=== PATIENT | male | born 1980 | race American Indian/Alaskan Native ===

== ENCOUNTER 2019-02-12 19:50 | Observation (INO) | payer BC, OTHER ==
[2019-02-12] MEDS ORDERED: ASPIRIN PO ONE (20:46)
--- NOTE | 2019-02-12 21:17 | XRay Report ---
PROCEDURE: XR CHEST 1V AP TECHNIQUE: Chest radiograph single view. HISTORY: Chest Pain COMPARISONS: None . FINDINGS: Heart: Normal. Mediastinum/Vessels: Normal. Lungs/Pleural space: There is elevation of the right hemidiaphragm. No acute pulmonary abnormality id entified. Bony thorax: No acute osseous abnormality. Life support devices: None. IMPRESSION: Markedly elevated right hemidiaphragm No acute findings in the chest This document is electronically signed by Teofilo Ponce MD., February 12 2019 09:15:28 PM ET
[2019-02-12 21:47] LABS: Basophils # (Auto) 0.1 K/mm3 (0.0-0.1); Basophils % (Auto) 0.4 % (0.0-1.8); Eosinophils # (Auto) 0.1 K/mm3 (0.0-0.4); Eosinophils % (Auto) 0.4 % (0.0-4.3); Hematocrit 42.2 % (35.5-45.6); Hemoglobin 13.6 gm/dl (11.8-15.2); Lymphocytes % (Auto) 6.2 % (13.4-35.0); Mean Corpuscular HGB Conc 32 % (32-34); Mean Corpuscular Volume 77 fl (84-94); Monocytes # (Auto) 1.3 K/mm3 (0.0-0.8); Monocytes % (Auto) 7.7 % (0.0-7.3); Platelet Count 401 K/mm3 (140-440); Red Blood Count 5.47 M/mm3 (3.65-5.03); Red Cell Distribution Width 15.1 % (13.2-15.2)
--- NOTE | 2019-02-12 21:51 | Emergency Department Report ---
ED Chest Pain HPI - General Chief Complaint: Chest Pain Stated Complaint: CHEST PAIN Time Seen by Provider: 02/12/19 21:45 Source: patient Mode of arrival: Ambulatory Limitations: No Limitations - History of Present Illness Initial Comments: Patient is a 38-year-old male presents emergency with right-sided chest pain radiating to his right arm that started 1 hour prior to arrival. Patient states the pain is worsening. Patient states the pain is intermittent. Patient states it starts in his right sternum and radiates down his entire right arm. Patient states the pain is worse with deep breath and exertion and better with rest. She denies fever chills. Patient denies cough. Patient states he has shortness of breath with exertion MD Complaint: chest pain -: Sudden Onset: during rest Pain Location: substernal, right chest Pain Radiation: RUE Severity: severe Severity scale (0 -10): 10 Quality: sharp Consistency: constant Improves With: rest Worsens With: exertion, inspiration re: dyspnea. denies: nausea, vomting, diaphoresis, sense of impending doom Other Symptoms: denies: cough, fever, syncope, rash, acid taste in mouth, leg swelling, palpitations, burping Treatments Prior to Arrival: none Aspirin use within the Past 7 Days: (0) No - Related Data On Oral Contraceptives: No Home Medications Medication Instructions Recorded Confirmed Last Taken amLODIPine 5 mg PO DAILY 02/12/19 02/12/19 Unknown Allergies Allergy/AdvReac Type Severity Reaction Status Date / Time No Known Allergies Allergy Unverified 02/12/19 20:44 Heart Score - HEART Score History: Moderately suspicious EKG: Non-specific Age: < 45 Risk factors: No known risk factors Troponin: < normal limit HEART Score: 2 ED Review of Systems ROS: Stated complaint: CHEST PAIN Other details as noted in HPI Constitutional: denies: chills, fever Eyes: denies: eye pain, eye discharge, vision change ENT: denies: ear pain, throat pain Respiratory: shortness of breath. denies: cough, wheezing Cardiovascular: chest pain. denies: palpitations Endocrine: no symptoms reported Gastrointestinal: denies: abdominal pain, nausea, diarrhea Genitourinary: denies: urgency, dysuria Musculoskeletal: denies: back pain, joint swelling, arthralgia Skin: denies: rash, lesions Neurological: denies: headache, weakness, paresthesias Psychiatric: denies: anxiety, depression Hematological/Lymphatic: denies: easy bleeding, easy bruising ED Past Medical Hx - Past Medical History Previous Medical History?: Yes Hx Hypertension: Yes Hx Diabetes: Yes Additional medical history: Obesity - Surgical History Past Surgical History?: No - Family History Family history: no significant - Social History Smoking Status: Former Smoker Substance Use Type: None - Medications Home Medications: Home Medications Medication Instructions Recorded Confirmed Last Taken Type amLODIPine 5 mg PO DAILY 02/12/19 02/12/19 Unknown History ED Physical Exam - General Limitations: No Limitations General appearance: alert, in no apparent distress - Head Head exam: Present: atraumatic, normocephalic - Eye Eye exam: Present: normal appearance - ENT ENT exam: Present: mucous membranes moist - Neck Neck exam: Present: normal inspection - Respiratory Respiratory exam: Present: normal lung sounds bilaterally. Absent: respiratory distress, wheezes, rales, chest wall tenderness - Cardiovascular Cardiovascular Exam: Present: regular rate, normal rhythm. Absent: systolic murmur, diastolic murmur, rubs, gallop - GI/Abdominal GI/Abdominal exam: Present: soft, normal bowel sounds. Absent: distended, tenderness, guarding - Rectal Rectal exam: Present: deferred - Extremities Exam Extremities exam: Present: normal inspection - Back Exam Back exam: Present: normal inspection - Neurological Exam Neurological exam: Present: alert, oriented X3 - Psychiatric Psychiatric exam: Present: normal affect, normal mood - Skin Skin exam: Present: warm, dry, intact, normal color. Absent: rash ED Course Vital Signs 02/12/19 02/12/19 02/13/19 20:03 22:00 00:30 Temperature 97.4 F L 98.2 F 98.4 F Pulse Rate 87 91 H 85 Respiratory 18 18 18 Rate Blood Pressure 101/65 Blood Pressure 131/87 143/96 [Left] O2 Sat by Pulse 94 96 98 Oximetry - Reevaluation(s) Reevaluation #1: Patient states pain is better. Discussed all results with patient. Patient will be admitted to the hospitalist service. Patient agrees to plan of care. 02/13/19 00:38 - Consultations Consultation #1: Hospitalist consulted for admission. Hospitalist to admit patient. Hospitalist to assume care patient. 02/13/19 00:41 CORWIN score - Corwin Score Age > 65: (0) No Aspirin use within the Past 7 Days: (0) No 3 or more CAD Risk Factors: (0) No 2 or more Angina events in past 24 hrs: (0) No Known CAD with more than 50% Stenosis: (0) No Elevated Cardiac Markers: (0) No ST Deviation Greater than 0.5mm: (0) No CORWIN Score: 0 ED Medical Decision Making - Lab Data Result diagrams: 02/12/19 21:34 02/12/19 21:34 - EKG Data -: EKG Interpreted by Me EKG shows normal: sinus rhythm, axis, intervals, QRS complexes, ST-T waves Rate: normal - Radiology Data Radiology results: report reviewed, image reviewed PROCEDURE: XR CHEST 1V AP TECHNIQUE: Chest radiograph single view. HISTORY: Chest Pain COMPARISONS: None . FINDINGS: Heart: Normal. Mediastinum/Vessels: Normal. Lungs/Pleural space: There is elevation of the right hemidiaphragm. No acute pulmonary abnormality identified. Bony thorax: No acute osseous abnormality. Life support devices: None. IMPRESSION: Markedly elevated right hemidiaphragm No acute findings in the chest - Medical Decision Making Patient is a 38-year-old male that presents emergent with chest pain and shortness of breath. Patient admitted to the hospitalist service. Patient will likely require a repeat CTA since it was inadequate to evaluate PE. Patient's cardiac workup is negative. Patient's chest x-ray shows severe elevation of the right hemidiaphragm. - Differential Diagnosis chest pain. Shortness of breath. ACS Critical Care Time: Yes Critical care attestation.: If time is entered above; I have spent that time in minutes in the direct care of this critically ill patient, excluding procedure time. Critical Care Time: 45 minutes ED Disposition Clinical Impression: Elevated diaphragm, SOB (shortness of breath) Chest pain Qualifiers: Chest pain type: unspecified Qualified Code(s): R07.9 - Chest pain, unspecified Disposition: 09 OP ADMIT IP TO THIS HOSP Is pt being admited?: Yes Does the pt Need Aspirin: No Condition: Critical Time of Disposition: 00:38
[2019-02-12 22:06] LABS: BUN/Creatinine Ratio 11; Blood Urea Nitrogen 13 mg/dL (9-20); Calcium 9.2 mg/dL (8.4-10.2); Hemolysis Index 3
--- NOTE | 2019-02-12 23:54 | Cat Scan Report ---
PROCEDURE: CT angiogram chest with contrast. TECHNIQUE: Computerized tomographic angiography of the chest was performed after the IV injection of iodinated nonionic contrast including image processing. The image data was postprocessed using 2-di mensional multiplanar reformatted (MPR) and 3-dimensional (MIP and/or volume rendered) techniques. Au tomated exposure control, adjustment of mA and/or kV according to patient size, or iterative reconstr uction dose optimization techniques were utilized. CT DOSE LENGTH PRODUCT: 944.8 mGycm HISTORY: Shortness of breath, chest pain. COMPARISONS: None. FINDINGS: The trachea and central bronchi appear normal. There is mild subsegmental atelectasis in the right lo wer lobe. There is severe elevation of the right hemidiaphragm which probably causes the atelectasis. The lungs are otherwise clear. There are no pulmonary masses. The thoracic aorta has a normal calibe r without evidence of dissection. Unfortunately the bolus contrast enhancement of the pulmonary arter ies was mistimed. The majority of the contrast is already within the aorta. There are no pulmonary em boli in the right and left main pulmonary arteries. Distal to this level pulmonary emboli could be mi ssed. A repeat CT angiogram could be done after an appropriate interval of waiting. Otherwise a nucle ar medicine ventilation and perfusion lung scan may be of use. There is no mediastinal adenopathy. Th e heart size is normal. There are no pleural effusions. The thoracic skeleton appears intact. IMPRESSION: Inadequate evaluation for pulmonary embolism as discussed above. Severe elevation of the right hemidiaphragm. Small area of subsegmental atelectasis in the right lower lobe. This document is electronically signed by Dennis Washington MD., February 12 2019 11:51:51 PM ET
[2019-02-13] MEDS ORDERED: TYLENOL PO PRN (01:21)
[2019-02-13] MEDS ORDERED: SODIUM CHLORIDE FLUSH SYRINGE 10 ML IV PRN ×2 (01:21)
[2019-02-13] MEDS ORDERED: ZOFRAN IV PRN (01:21)
--- NOTE | 2019-02-13 01:34 | History and Physical Report ---
<YOVANY LARRY - Last Filed: 02/13/19 04:55> History of Present Illness Date of examination: 02/13/19 Date of admission: 02/13/2019 Chief complaint: Chest pain History of present illness: Pt is a 38-year-old male with PMHx of hypertension who presents to the ER with chest pain. Patient states that the pain started today it is located on the right substernal area radiating to the right arm causing numbness and tingling. Patient also states that the pain is worse with deep breath, it is a stabbing pain associated with some pressure. Patient reports diaphoresis, blurry vision, denied similar chest pain, he denies any family history of heart disease, denies palpitation, denies headache or dizziness. In the ER patient had a CT of the chest which wasn't incompletely and recommended to follow up with VQ scan. Patient admits that he quit smoking 2 weeks ago after he found out his blood pressure was elevated, his blood glucose was 233, patient is admitted for further evaluation and she Past History Past Medical History: hypertension, other (obesity) Past Surgical History: No surgical history Social history: no significant social history Family history: no significant family history Medications and Allergies Allergies Allergy/AdvReac Type Severity Reaction Status Date / Time No Known Allergies Allergy Verified 02/17/19 20:27 Home Medications Medication Instructions Recorded Confirmed Last Taken Type AtorvaSTATin [Lipitor] 20 mg PO QHS #30 tab 02/13/19 Unknown Rx Famotidine [Pepcid] 10 mg PO BID #30 tablet 02/13/19 Unknown Rx amLODIPine 5 mg PO DAILY #30 02/13/19 Unknown Rx cephALEXin [Keflex] 500 mg PO Q8HR #15 cap 02/13/19 Unknown Rx guaiFENesin/CODEINE [Robitussin AC] 5 ml PO TID PRN 10 Days oral.liqd 02/13/19 Unknown Rx metFORMIN [Glucophage] 500 mg PO QDAY #30 tab 02/13/19 Unknown Rx HYDROcodone/APAP 5-325 [[place] 1 each PO Q6HR PRN #12 tablet 02/18/19 Unknown Rx 5/325] Active Meds: Active Medications Acetaminophen (Tylenol) 650 mg PO Q4H PRN PRN Reason: Pain MILD(1-3)/Fever >100.5/TIRADO Aspirin (Ecotrin) 325 mg PO QDAY ARY Ondansetron HCl (Zofran) 4 mg IV Q8H PRN PRN Reason: Nausea And Vomiting Sodium Chloride (Sodium Chloride Flush Syringe 10 Ml) 10 ml IV PRN PRN PRN Reason: LINE FLUSH Sodium Chloride (Sodium Chloride Flush Syringe 10 Ml) 10 ml IV BID ARY Sodium Chloride (Sodium Chloride Flush Syringe 10 Ml) 10 ml IV PRN PRN PRN Reason: LINE FLUSH Review of Systems Cardiovascular: chest pain Respiratory: shortness of breath Gastrointestinal: abdominal pain Exam - Constitutional Vitals: Temp Pulse Resp BP Pulse Ox 98.4 F 85 18 143/96 98 02/13/19 00:30 02/13/19 00:30 02/13/19 00:30 02/13/19 00:30 02/13/19 00:30 General appearance: Present: no acute distress - EENT Eyes: Present: EOM intact - Neck Neck: Present: normal ROM - Respiratory Respiratory effort: normal Respiratory: bilateral: CTA - Cardiovascular Rhythm: regular Heart Sounds: Present: S1 & S2 - Extremities Extremities: no ischemia Extremity abnormal: edema Peripheral Pulses: within normal limits - Abdominal General gastrointestinal: Present: non-tender, non-distended Male genitourinary: Present: deferred - Rectal Rectal Exam: deferred - Integumentary Integumentary: Present: warm, dry - Musculoskeletal Musculoskeletal: strength equal bilaterally - Psychiatric Psychiatric: appropriate mood/affect - Neurologic Neurologic: moves all extremities Results - Labs CBC & Chem 7: 02/13/19 02:32 02/13/19 02:32 Labs: Laboratory Last Values WBC 16.5 K/mm3 (4.5-11.0) H 02/12/19 21:34 RBC 5.47 M/mm3 (3.65-5.03) H 02/12/19 21:34 Hgb 13.6 gm/dl (11.8-15.2) 02/12/19 21:34 Hct 42.2 % (35.5-45.6) 02/12/19 21:34 MCV 77 fl (84-94) L 02/12/19 21:34 MCH 25 pg (28-32) L 02/12/19 21:34 MCHC 32 % (32-34) 02/12/19 21:34 RDW 15.1 % (13.2-15.2) 02/12/19 21:34 Plt Count 401 K/mm3 (140-440) 02/12/19 21:34 Lymph % (Auto) 6.2 % (13.4-35.0) L 02/12/19 21:34 [place] % (Auto) 7.7 % (0.0-7.3) H 02/12/19 21:34 Eos % (Auto) 0.4 % (0.0-4.3) 02/12/19 21:34 Baso % (Auto) 0.4 % (0.0-1.8) 02/12/19 21:34 Lymph # 1.0 K/mm3 (1.2-5.4) L 02/12/19 21:34 [place] # 1.3 K/mm3 (0.0-0.8) H 02/12/19 21:34 Eos # 0.1 K/mm3 (0.0-0.4) 02/12/19 21:34 Baso # 0.1 K/mm3 (0.0-0.1) 02/12/19 21:34 Seg Neutrophils % 85.3 % (40.0-70.0) H 02/12/19 21:34 Seg Neutrophils # 14.1 K/mm3 (1.8-7.7) H 02/12/19 21:34 Sodium 137 mmol/L (137-145) 02/12/19 21:34 Potassium 3.6 mmol/L (3.6-5.0) 02/12/19 21:34 Chloride 100.2 mmol/L (98-107) 02/12/19 21:34 Carbon Dioxide 22 mmol/L (22-30) 02/12/19 21:34 18 mmol/L 02/12/19 21:34 BUN 13 mg/dL (9-20) 02/12/19 21:34 1.2 mg/dL (0.8-1.5) 02/12/19 21:34 Estimated GFR > 60 ml/min 02/12/19 21:34 11 % 02/12/19 21:34 Glucose 233 mg/dL (75-100) H 02/12/19 21:34 Calcium 9.2 mg/dL (8.4-10.2) 02/12/19 21:34 < 0.010 ng/mL (0.00-0.029) 02/12/19 21:34 < 0.010 ng/mL (0.00-0.029) 02/12/19 21:34 Assessment and Plan Assessment and plan: 1. Atypical Chest pain r/o PE vrs other etiology 2. New onset DM 3. Hypertension 4. Obesity 5. Quit smoking 2 weeks ago Plan Admit to [facility] Continue CE q6hr x 2 more Monitor vital signs Accu check ACHS with insulin per sliding scale D-dimer, VQ scan to r/o PE Continue home meds Stress test in am Plan of care d/w pt, voiced understading Pt's condition and plan of care discussed with Dr. Diego <LAUREN DIEGO - Last Filed: 02/18/19 22:04> History of Present Illness Date of admission: 02/13/19 01:21 Medications and Allergies Active Meds: Active Medications Acetaminophen (Tylenol) 650 mg PO Q4H PRN PRN Reason: Pain MILD(1-3)/Fever >100.5/TIRADO Aspirin (Ecotrin) 325 mg PO QDAY ARY Ondansetron HCl (Zofran) 4 mg IV Q8H PRN PRN Reason: Nausea And Vomiting Sodium Chloride (Sodium Chloride Flush Syringe 10 Ml) 10 ml IV PRN PRN PRN Reason: LINE FLUSH Sodium Chloride (Sodium Chloride Flush Syringe 10 Ml) 10 ml IV BID ARY Sodium Chloride (Sodium Chloride Flush Syringe 10 Ml) 10 ml IV PRN PRN PRN Reason: LINE FLUSH Exam - Constitutional Vitals: Temp Pulse Resp BP Pulse Ox 98.2 F 81 18 106/60 95 02/13/19 03:31 02/13/19 03:31 02/13/19 03:31 02/13/19 03:31 02/13/19 03:31 Results - Labs CBC & Chem 7: 02/13/19 02:32 02/13/19 02:32 Labs: Laboratory Last Values WBC 12.0 K/mm3 (4.5-11.0) H 02/13/19 02:32 RBC 5.40 M/mm3 (3.65-5.03) H 02/13/19 02:32 Hgb 13.5 gm/dl (11.8-15.2) 02/13/19 02:32 Hct 42.7 % (35.5-45.6) 02/13/19 02:32 MCV 79 fl (84-94) L 02/13/19 02:32 MCH 25 pg (28-32) L 02/13/19 02:32 MCHC 32 % (32-34) 02/13/19 02:32 RDW 15.8 % (13.2-15.2) H 02/13/19 02:32 Plt Count 392 K/mm3 (140-440) 02/13/19 02:32 Lymph % (Auto) 12.8 % (13.4-35.0) L 02/13/19 02:32 [place] % (Auto) 5.4 % (0.0-7.3) 02/13/19 02:32 Eos % (Auto) 0.6 % (0.0-4.3) 02/13/19 02:32 Baso % (Auto) 0.3 % (0.0-1.8) 02/13/19 02:32 Lymph # 1.5 K/mm3 (1.2-5.4) 02/13/19 02:32 [place] # 0.6 K/mm3 (0.0-0.8) 02/13/19 02:32 Eos # 0.1 K/mm3 (0.0-0.4) 02/13/19 02:32 Baso # 0.0 K/mm3 (0.0-0.1) 02/13/19 02:32 Seg Neutrophils % 80.9 % (40.0-70.0) H 02/13/19 02:32 Seg Neutrophils # 9.7 K/mm3 (1.8-7.7) H 02/13/19 02:32 Sodium 138 mmol/L (137-145) 02/13/19 02:32 Potassium 4.1 mmol/L (3.6-5.0) 02/13/19 02:32 Chloride 100.5 mmol/L (98-107) 02/13/19 02:32 Carbon Dioxide 23 mmol/L (22-30) 02/13/19 02:32 19 mmol/L 02/13/19 02:32 BUN 13 mg/dL (9-20) 02/13/19 02:32 0.9 mg/dL (0.8-1.5) 02/13/19 02:32 Estimated GFR > 60 ml/min 02/13/19 02:32 14 % 02/13/19 02:32 Glucose 149 mg/dL (75-100) H 02/13/19 02:32 8.4 % (4-6) H 02/13/19 02:32 Calcium 9.4 mg/dL (8.4-10.2) 02/13/19 02:32 0.40 mg/dL (0.1-1.2) 02/13/19 01:18 < 0.2 mg/dL (0-0.2) 02/13/19 01:18 0.2 mg/dL 02/13/19 01:18 AST 14 units/L (5-40) 02/13/19 01:18 ALT 19 units/L (7-56) 02/13/19 01:18 78 units/L (35-129) 02/13/19 01:18 < 0.010 ng/mL (0.00-0.029) 02/13/19 01:18 7.6 g/dL (6.3-8.2) 02/13/19 01:18 4.2 g/dL (3.9-5) 02/13/19 01:18 1.2 % 02/13/19 01:18 Triglycerides 95 mg/dL (2-149) 02/13/19 02:32 Cholesterol 198 mg/dL (50-199) 02/13/19 02:32 161 mg/dL (50-130) H 02/13/19 02:32 31 mg/dL (40-59) L 02/13/19 02:32 6.38 % 02/13/19 02:32 Assessment and Plan Assessment and plan: 38-year-old man with history of obesity, hypertension, new onset diabetes comes to emergency room with complaints of right-sided chest pain radiating to the right arm which she describes as a sharp, squeezing pain that is in constant associated with shortness of breath. He had a CT chest done to rule out PE which was inconclusive secondary to the timing of contrast being off. Agree with checking d-dimer, stress test. Patient with right upper abdominal pain and elevated right hemidiaphragm, check CT of the abdomen and pelvis. Consult dietitian for diabetic teaching, add Percocet for pain. DC VQ scan, D-dimer negative
[2019-02-13 01:55] LABS: Alanine Aminotransferase 19 units/L (7-56); Albumin 4.2 g/dL (3.9-5)
[2019-02-13 02:03] LABS: Bilirubin,Direct < 0.2 mg/dL (0-0.2)
--- NOTE | 2019-02-13 02:19 | Cat Scan Report ---
PROCEDURE: CT abdomen and pelvis without contrast. TECHNIQUE: Computerized axial tomography of the abdomen and pelvis was performed without intravenous contrast. This study is performed without intravascular contrast material and its sensitivity for ab dominal and pelvic pathology, including neoplasms, inflammation, abscess, free fluid, thrombosis, art erial dissection and infarction, is reduced compared with a contrast enhanced study. CT DOSE LENGTH PRODUCT: 2400.16 mGycm HISTORY: abd pain, rt marleny diaphragm COMPARISONS: None. FINDINGS: There is elevation of the right hemidiaphragm. There is subsegmental atelectasis in the right lower l obe, likely on the basis of the elevated right hemidiaphragm. There are no pleural effusions. The hea rt size is normal. The liver, pancreas and spleen are grossly normal. The gallbladder is present. The re is no biliary dilatation. The adrenal glands are not enlarged. Both kidneys appear normal in size and configuration. There is contrast within the renal collecting systems and bladder from the previou s CT angiogram of the chest study. The abdominal aorta has a normal caliber. There is no retroperiton eal adenopathy. The unopacified gastrointestinal tract is unremarkable. A normal appendix is visible. There is a small umbilical hernia containing fat. The bladder, seminal vesicles and prostate appear normal. The regional skeleton appears intact. IMPRESSION: Severe elevation of the right hemidiaphragm. Small umbilical hernia containing fat. No evidence of ac juana disease in the abdomen or pelvis. This document is electronically signed by Dennis Washington MD., February 13 2019 02:17:29 AM ET
[2019-02-13 03:04] LABS: Chol/HDL Ratio 6.38 %
[2019-02-13 03:07] LABS: BUN/Creatinine Ratio 14; Blood Urea Nitrogen 13 mg/dL (9-20); Calcium 9.4 mg/dL (8.4-10.2); Hemolysis Index 9
[2019-02-13 03:14] LABS: Basophils % (Auto) 0.3 % (0.0-1.8); Eosinophils # (Auto) 0.1 K/mm3 (0.0-0.4); Eosinophils % (Auto) 0.6 % (0.0-4.3); Hematocrit 42.7 % (35.5-45.6); Hemoglobin 13.5 gm/dl (11.8-15.2); Lymphocytes # (Auto) 1.5 K/mm3 (1.2-5.4); Lymphocytes % (Auto) 12.8 % (13.4-35.0); Mean Corpuscular HGB Conc 32 % (32-34); Mean Corpuscular Volume 79 fl (84-94); Monocytes # (Auto) 0.6 K/mm3 (0.0-0.8); Monocytes % (Auto) 5.4 % (0.0-7.3); Platelet Count 392 K/mm3 (140-440); Red Cell Distribution Width 15.8 % (13.2-15.2)
[2019-02-13] MEDS ORDERED: D50W (25GM) Syringe IV PRN (05:10)
[2019-02-13] MEDS ORDERED: PERCOCET 5/325 PO PRN (06:16)
[2019-02-13] MEDS: HumaLOG SUB-Q SCH ×3 (08:07→17:46)
[2019-02-13] MEDS ORDERED: LEXISCAN IV ONE (08:09)
[2019-02-13] MEDS ORDERED: SODIUM CHLORIDE FLUSH SYRINGE 10 ML IV SCH (10:00)
[2019-02-13] MEDS ORDERED: NON-FORMULARY (Amlodipine 5 MG) PO SCH (10:00)
[2019-02-13] MEDS ORDERED: NORVASC PO SCH (10:00)
[2019-02-13 11:17] VITALS: BP 120/79
--- NOTE | 2019-02-13 17:20 | Discharge Summary ---
Providers - Providers Date of Admission: 02/13/19 01:21 Date of discharge: 02/13/19 Attending physician: GRACIE ANDREWS 02/13/19 Consult to Cardiac Rehabilitation [CONS] Routine Reason For Exam: Phase I 02/13/19 05:11 Consult to Dietitian/Nutrition [CONS] Routine Physician Instructions: Reason For Exam: Reason for Consult: Diet education Primary care physician: [facility], Hospitalization Reason for admission: chest pain Condition: Stable Pertinent studies: Chest x-ray; markedly elevated right diaphragm Stress test; no ischemia CT abdomen and pelvis; elevation of right hemidiaphragm, small umbilical hernia containing fat, no acute abnormality seen abdomen or pelvis CT chest; inadequate evaluation for PE severe elevation of the right hemidiaphragm small area of some segmental atelectasis in the right lower lobe Hospital course: Pt is a 38-year-old male with PMHx of hypertension who presents to the ER with chest pain. Patient states that the pain started today it is located on the right substernal area radiating to the right arm causing numbness and tingling. Patient also states that the pain is worse with deep breath, it is a stabbing pain associated with some pressure. Patient was admitted, symptomatically managed. Subsequently underwent stress test, negative for ischemia Patient's chest pain probably noncardiac, secondary to GERD. Managed with Pepcid Today patient is comfortable no new complaints vital signs stable physical examination unremarkable Hemodynamically and clinically stable at discharge. Discharge diagnosis; --Atypical chest pain; negative stress test --Noncardiac chest pain; probably secondary to GERD, Pepcid --GERD probably causing the chest pain, Pepcid --Type 2 diabetes mellitus; continue current management --Morbid obesity; BMI 46.1 Counseling done advised diet modification, exercise as tolerated and weight reduction Explained to the patient the risks and complications of morbid obesity Encouraged to have diet and exercise plan Spent 10 minutes explaining this is some Stable to discharge Disposition: DC-01 TO HOME OR SELFCARE Time spent for discharge: 32 min Core Measure Documentation - Palliative Care Palliative Care/ Comfort Measures: Not Applicable - Core Measures Any of the following diagnoses?: none Exam - Constitutional Vitals: Temp Pulse Resp BP Pulse Ox 98.2 F 88 18 120/79 98 02/13/19 03:31 02/13/19 11:25 02/13/19 11:25 02/13/19 11:25 02/13/19 11:25 General appearance: Present: no acute distress, well-nourished, obese (morbidly obese) - EENT Eyes: Present: PERRL, EOM intact - Neck Neck: Present: supple, normal ROM - Respiratory Respiratory effort: normal Respiratory: bilateral: diminished, negative: rales, rhonchi, wheezing - Cardiovascular Rhythm: regular Heart Sounds: Present: S1 & S2 - Extremities Extremities: no ischemia, No edema - Abdominal General gastrointestinal: Present: soft, non-tender, non-distended, normal bowel sounds - Integumentary Integumentary: Present: clear, warm - Musculoskeletal Musculoskeletal: strength equal bilaterally - Psychiatric Psychiatric: appropriate mood/affect, cooperative - Neurologic Neurologic: CNII-XII intact, moves all extremities Plan Activity: no restrictions Diet: diabetic Special Instructions: physical therapy Additional Instructions: Exercise as tolerated and weight reduction [facility] CARL[facility] [Primary Care Provider] - 7 Days Forms: Work/School Release Form Prescriptions: amLODIPine 5 mg PO DAILY #30 metFORMIN [Glucophage] 500 mg PO QDAY #30 tab cephALEXin [Keflex] 500 mg PO Q8HR #15 cap AtorvaSTATin [Lipitor] 20 mg PO QHS #30 tab Famotidine [Pepcid] 10 mg PO BID #30 tablet guaiFENesin/CODEINE [Robitussin AC] 5 ml PO TID PRN 10 Days oral.liqd PRN Reason: Cough
--- NOTE | 2019-02-13 22:59 | Treadmill Report ---
NUCLEAR PERFUSION SCAN REFERRING PHYSICIAN: Dr. Steffanie Diego. PROCEDURE IN DETAIL: The patient was brought to the stress lab in a post-absorptive state, 10 mCi of technetium 99m given at rest. The patient underwent rest imaging. The patient underwent treadmill stress test per standard protocol. At peak stress, the patient was given 26 mCi of technetium 99m. Shortly thereafter, the patient underwent stress imaging. Raw imaging reveals mild GI artifact. No significant motion artifact. SPECT images examined carefully in horizontal long axis, vertical long axis, short axis views. There is normal homogenous uptake of radioisotope in all reported segments. No evidence of significant fixed or reversible perfusion defects suggestive of prior infarction or ischemia. Gated wall motion reveals normal systolic thickening, calculated ejection fraction of 53%. No TID. See stress test report for details of EKG reporting. CONCLUSIONS: 1. Normal myocardial perfusion scan without evidence of active ischemia or prior infarction. 2. Normal left ventricular systolic performance with estimated ejection fraction of 55% without evidence of transient ischemic dilatation or stress-induced segmental wall motion abnormalities. 3. Normal treadmill stress test without evidence of diagnostic ST changes; arrhythmias or chest pain during stress or recovery. JOB# [id number] GELACIO/YOSELIN
[2019-02-14] MEDS ORDERED: ECOTRIN PO SCH (10:00)
== END 2019-02-13 18:30 | disposition home or self-care (01) ==
LOC: ED 19:50 → INTOOBSV 02-13 01:21 → 4A 02-13 01:21
PROVIDERS: ADMIT Internal Medicine; ATTEND Internal Medicine
DX: R07.89 Other chest pain (principal); E11.9 Type 2 diabetes mellitus without complications; E66.9 Obesity, unspecified; Z87.891 Personal history of nicotine dependence; Z79.899 Other long term (current) drug therapy
CPT/HCPCS: 36415; 71045; 71275; 74176; 78452; 80048; 80061; 80076; 82962; 83036; 84484; 85025; 85379; 93005; 93010; 93017; 96372; 99291; A9502; G0378; J2785; Q9967

== ENCOUNTER 2019-02-17 20:23 | Emergency (ER) | payer BC ==
[2019-02-17 21:00] LABS: Hematocrit 44.1 % (35.5-45.6); Mean Corpuscular HGB Conc 32 % (32-34); Mean Corpuscular Volume 78 fl (84-94); Platelet Count 455 K/mm3 (140-440); Red Blood Count 5.62 M/mm3 (3.65-5.03); Red Cell Distribution Width 15.3 % (13.2-15.2)
[2019-02-17 21:18] LABS: BUN/Creatinine Ratio 16; Blood Urea Nitrogen 14 mg/dL (9-20); Calcium 9.3 mg/dL (8.4-10.2); Hemolysis Index 11
--- NOTE | 2019-02-17 21:21 | XRay Report ---
CHEST 2 VIEWS INDICATION / CLINICAL INFORMATION: chest pain. COMPARISON: Chest x-ray on 02/12/2019. FINDINGS: SUPPORT DEVICES: None. HEART / MEDIASTINUM: No significant abnormality. LUNGS / PLEURA: No significant pulmonary or pleural abnormality. No pneumothorax. ADDITIONAL FINDINGS: Stable elevation of the right hemidiaphragm. IMPRESSION: 1. No acute findings. No significant change from the prior study. Signer Name: Lalo Rudolph MD Signed: 02/17/2019 8:17 PM Workstation Name: [id number]
[2019-02-17 21:32] LABS: Basophils % (Manual) 0 % (0.0-1.8); Eosinophils % (Manual) 0 % (0.0-4.3); Total Cells Counted 100
[2019-02-17 21:33] LABS: Anisocytosis Few; Platelet Estimate Consistent w Auto; Poikilocytosis Few
[2019-02-17 22:50] VITALS: BP 120/71
--- NOTE | 2019-02-17 23:11 | Emergency Department Report ---
ED Chest Pain HPI - General Chief Complaint: Chest Pain Stated Complaint: CHEST PAIN Time Seen by Provider: 02/17/19 22:48 Source: patient Mode of arrival: Wheelchair Limitations: No Limitations - History of Present Illness Initial Comments: 38-year-old -[place] male presents to the emergency department with complaint of midsternal to right sided chest pain that started yesterday but went away and returned earlier today. He denies any significant shortness of breath but says that the pain worsens with breathing. The patient was recently diagnosed with diabetes, hypertension. He is a former smoker having recently quit. The patient was just admitted to this hospital for similar symptoms last week and had a full cardiac workup including a negative stress test. He says that he took some type of [id number] pain reliever for his symptoms today without much relief. No recent travel or sick contacts at home. He does not have a primary care physician. Severity scale (0 -10): 7 - Related Data Previous Rx's Medication Instructions Recorded Last Taken Type AtorvaSTATin [Lipitor] 20 mg PO QHS #30 tab 02/13/19 Unknown Rx Famotidine [Pepcid] 10 mg PO BID #30 tablet 02/13/19 Unknown Rx amLODIPine 5 mg PO DAILY #30 02/13/19 Unknown Rx cephALEXin [Keflex] 500 mg PO Q8HR #15 cap 02/13/19 Unknown Rx guaiFENesin/CODEINE [Robitussin AC] 5 ml PO TID PRN 10 Days oral.liqd 02/13/19 Unknown Rx metFORMIN [Glucophage] 500 mg PO QDAY #30 tab 02/13/19 Unknown Rx HYDROcodone/APAP 5-325 [Thaxton 1 each PO Q6HR PRN #12 tablet 02/18/19 Unknown Rx 5/325] Allergies Allergy/AdvReac Type Severity Reaction Status Date / Time No Known Allergies Allergy Verified 02/17/19 20:27 Heart Score - HEART Score History: Slightly suspicious EKG: Normal Age: < 45 Risk factors: 1-2 risk factors Troponin: < normal limit HEART Score: 1 - Critical Actions Critical Actions: 0-3 pts:0.9-1.7%risk of adverse cardiac event.Candidate for discharge ED Review of Systems ROS: Stated complaint: CHEST PAIN Other details as noted in HPI Comment: All other systems reviewed and negative Constitutional: denies: chills, fever Eyes: denies: eye pain, vision change ENT: denies: ear pain, throat pain Respiratory: denies: cough, wheezing Cardiovascular: chest pain. denies: edema Gastrointestinal: denies: abdominal pain, vomiting Genitourinary: denies: dysuria, discharge Musculoskeletal: denies: back pain, arthralgia Skin: denies: rash, lesions Neurological: denies: headache, weakness ED Past Medical Hx - Past Medical History Previous Medical History?: Yes Hx Hypertension: Yes Hx Congestive Heart Failure: No Hx Diabetes: Yes Hx Asthma: No Hx COPD: No Additional medical history: Obesity - Surgical History Past Surgical History?: No - Social History Smoking Status: Former Smoker - Medications Home Medications: Home Medications Medication Instructions Recorded Confirmed Last Taken Type AtorvaSTATin [Lipitor] 20 mg PO QHS #30 tab 02/13/19 Unknown Rx Famotidine [Pepcid] 10 mg PO BID #30 tablet 02/13/19 Unknown Rx amLODIPine 5 mg PO DAILY #30 02/13/19 Unknown Rx cephALEXin [Keflex] 500 mg PO Q8HR #15 cap 02/13/19 Unknown Rx guaiFENesin/CODEINE [Robitussin AC] 5 ml PO TID PRN 10 Days oral.liqd 02/13/19 Unknown Rx metFORMIN [Glucophage] 500 mg PO QDAY #30 tab 02/13/19 Unknown Rx HYDROcodone/APAP 5-325 [Thaxton 1 each PO Q6HR PRN #12 tablet 02/18/19 Unknown Rx 5/325] ED Physical Exam - General Limitations: No Limitations - Other Other exam information: GENERAL: The patient is well-developed well-nourished. HENT: Normocephalic. Atraumatic. Patient has moist mucous membranes. EYES: Extraocular motions are intact. NECK: Supple. Trachea is midline. CHEST/LUNGS: Clear to auscultation. There is no respiratory distress noted. There is some reproducible right sided to midsternal chest pain to palpation of the chest wall. No crepitus or deformity. HEART/CARDIOVASCULAR: Regular. There is no tachycardia. There is no murmur. ABDOMEN: Abdomen is soft, nontender. Patient has normal bowel sounds. Obese habitus. SKIN: Skin is warm and dry. NEURO: The patient is awake, alert, and oriented. The patient is cooperative. The patient has no focal neurologic deficits. The patient has normal speech. MUSCULOSKELETAL: There is no tenderness or deformity. There is no limitation range of motion. There is no evidence of acute injury. ED Course Vital Signs 02/17/19 02/17/19 02/17/19 20:35 22:45 22:46 Temperature 98.2 F Pulse Rate 94 H 92 H Respiratory 18 11 L 19 Rate Blood Pressure 150/81 120/71 O2 Sat by Pulse 95 97 Oximetry CORWIN score - Corwin Score Age > 65: (0) No Aspirin use within the Past 7 Days: (0) No 3 or more CAD Risk Factors: (0) No 2 or more Angina events in past 24 hrs: (1) Yes (If considered angina) Known CAD with more than 50% Stenosis: (0) No Elevated Cardiac Markers: (0) No ST Deviation Greater than 0.5mm: (0) No CORWIN Score: 1 ED Medical Decision Making - Lab Data Result diagrams: 02/17/19 20:44 02/17/19 20:44 - EKG Data -: EKG Interpreted by Me EKG shows normal: sinus rhythm, axis, intervals, QRS complexes, ST-T waves Rate: normal - EKG Data When compared to previous EKG there are: no significant change Interpretation: normal EKG, unchanged when compared t (02/12/19) - Radiology Data Radiology results: image reviewed interpreted by me: Chest x-ray does not show any acute process. There are no pleural effusions, obvious pneumonia and there is no pneumothorax. - Medical Decision Making This patient presents to the emergency department with a one to 2 day history of some midsternal to right sided chest pain. On examination, his heart and breath sounds are normal to auscultation and his pain is reproducible to palpation of the chest wall. Chest x-ray did not show any pleural effusions, pneumothorax, pneumonia, focal consolidation, or any other acute process. The patient's labs have been unremarkable including negative troponins 2 and a negative d-dimer. On top of all that, the patient recently was admitted to the hospital for the same symptoms and had a negative stress test completed within the last week. He is low on the heart score criteria and CORWIN score. For these reasons, the patient does not appear to have coronary artery disease and appears safe for discharge home at this time. He was given a dose of pain and anti-inflammatory medications here with some improvement of his discomfort. He will be discharged home to follow up with primary care and cardiology. He will return to the emergency Department with any worsening of his symptoms or any acute distress. - Differential Diagnosis [place], PE, costochondritis, GERD Critical Care Time: No Critical care attestation.: If time is entered above; I have spent that time in minutes in the direct care of this critically ill patient, excluding procedure time. ED Disposition Clinical Impression: Atypical chest pain, Chest wall pain Disposition: TO HOME OR SELFCARE Is pt being admited?: No Condition: Stable Instructions: Chest Pain (ED), Costochondritis (ED) Additional Instructions: Please follow-up with a primary care physician in the next few days. I am giving you a referral for a local spiral winding machine helper, Dr. Mathew, to follow up rega rding your chest pains. Return to the emergency Department with any worsening of your symptoms or any acute distress. You have been prescribed a medication that is sedating and therefore should not be taken prior to driving, working, and responsible for children and in no way should be mixed with alcohol of any quantity. Prescriptions: HYDROcodone/APAP 5-325 [Thaxton 5/325] 1 each PO Q6HR PRN #12 tablet PRN Reason: Pain Referrals: BEVERLY MATHEW MD [Staff Physician] - 3-5 Days [facility] [Outside] - 3-5 Days Forms: Work/School Release Form(ED) Time of Disposition: 00:12
[2019-02-17] MEDS ORDERED: TORADOL IV ONE (23:26)
[2019-02-17] MEDS ORDERED: MORPHINE IV ONE (23:26)
== END 2019-02-18 00:25 | disposition home or self-care (01) ==
LOC: ED 20:23
DX: R07.89 Other chest pain (principal); I10 Essential (primary) hypertension; E11.9 Type 2 diabetes mellitus without complications; Z87.891 Personal history of nicotine dependence; Z79.899 Other long term (current) drug therapy
CPT/HCPCS: 36415; 71046; 80048; 84484; 85007; 85025; 85379; 93005; 93010; 96374; 96375; 99284; J1885; J2270